=== PATIENT | female | born 1990 | race Caucasian/White ===

== ENCOUNTER 2020-07-29 13:05 | Emergency (ER) | payer BC ==
[~2020-07-29] VITALS: Ht 165.1 cm; Wt 99.3 kg
[2020-07-29] MEDS ORDERED: diphenhydrAMINE 50 MG/ML VIAL IVP ONE (13:30)
[2020-07-29] MEDS ORDERED: IV NORMAL SALINE 1,000ML 1,000 ML IV ONE (13:30)
[2020-07-29] MEDS ORDERED: PROCHLORPERAZINE 10 MG/2 ML VIAL. IV ONE (13:30)
[2020-07-29] MEDS ORDERED: ONDANSETRON PF 4 MG/2 ML VIAL. IVP ONE (13:30)
[2020-07-29 14:06] LABS: BASO # 0.1 x10^3/uL (0.0-0.2); BASO % 1 % (0-3); EOS # 0.1 x10^3/uL (0.0-0.7); EOS % 1 % (0-3); HEMATOCRIT 33.7 % (36.0-47.0); HEMOGLOBIN 10.7 g/dL (12.0-15.5); LYMPH # 2.8 x10^3/uL (1.0-4.8); LYMPH % 32 % (24-48); MEAN CORPUSCULAR HEMOGLOBIN 20 pg (25-35); MEAN CORPUSCULAR HGB CONC 32 g/dL (31-37); MEAN CORPUSCULAR VOLUME 62 fL (79-100); MONO # 0.6 x10^3/uL (0.0-1.1); MONO % 7 % (0-9); NEUT # 5.2 x10^3uL (1.8-7.7); NEUT % 59 % (31-73); PLATELET COUNT 232 x10^3/uL (140-400); RED BLOOD COUNT 5.45 x10^6/uL (3.50-5.40); RED CELL DISTRIBUTION WIDTH 16.4 % (11.5-14.5); WHITE BLOOD COUNT 8.7 x10^3/uL (4.0-11.0)
[2020-07-29 14:15] LABS: CALCIUM 9.2 mg/dL (8.5-10.1); CREATININE 0.8 mg/dL (0.6-1.0); GFR 84.2
--- NOTE | 2020-07-29 14:16 | RAD ---
CT head without contrast PQRS statement: CT scans at this facility use dose reduction including either automated exposure cont rol, iterative reconstructions, and /or weight based radiation dosing via mA and kV modification when appropriate to reduce radiation dose to as low as reasonably achievable. HISTORY: Headaches. Dizziness. Hemophilia history. FINDINGS: No intracranial hemorrhage, mass, hydrocephalus, extra-axial fluid collections or infarctio n. No acute ischemic change. Orbits, mastoids and bones are unremarkable. IMPRESSION: Normal exam. Electronically signed by: Jerod Montoya MD (07/29/2020 2:13 PM) [id number]
[2020-07-29 14:35] LABS: BACTERIA,URINE FEW /HPF (0-FEW); BILIRUBIN,URINE NEG (NEG); CLARITY,URINE CLEAR; COLOR,URINE YELLOW; GLUCOSE,URINE NEG (NEG); NITRITE,URINE NEG (NEG); SQUAMOUS EPITHELIAL CELL,UR OCC /LPF; UROBILINOGEN,URINE 0.2 mg/dL (0.2 mg/dL)
[2020-07-29 14:55] VITALS: BP 104/62
[2020-07-29] MEDS ORDERED: CEPH500C PO (14:59)
--- NOTE | 2020-07-29 14:59 | PHYS DOC ---
Past History Past Medical History: Migraines, Other Additional Past Medical Histor: VON WILLEBRANDS (CARMEN ZAMORANO APRN) Past Surgical History: Knee Replacement (CARMEN ZAMORANO APRN) Alcohol Use: None (CARMEN ZAMORANO APRN) Adult General Chief Complaint Chief Complaint: HEADACHE HPI HPI Patient is a 30-year-old female presents to the emergency department with complaints of a frontal headache that radiates to the left side of her latter day that is unrelieved with Excedrin headache medications at home. Patient states she also had a nosebleed on the right nostril that lasted about 5 minutes this morning and resolved prior to arrival to the ER. Patient reports some nausea with her headache, denies any vomiting, abdominal pain, constipation, or diarrhea. Patient denies any urinary tract infection type signs and symptoms, however states she had a longer and heavier than normal. That lasted from 06/18/20 through 06/26/2020, and has missed her normal menstrual cycle this month. Patient reports some photophobia with this headache which is normal for her headaches, patient states that this was a normal onset of her headache, denies any thunderclap type onset, patient states this feels like her normal headaches and is not the worst headache she has ever had in her life. Patient does report a history of thalassemia, von Willebrand, and hemophilia. Patient states she has no allergies to medications and takes no medications at home. Patient states she does have a Mirena IUD that was placed 5 years ago and knows that she should get it replaced soon. Patient states she does not have a physician in the [facility] as she recently moved here. Patient reports her headache pain a 7/10 on a 1-10 pain scale, states she has not taken any pain medicines today for her headache. Patient denies any unusual bleeding or bruising. (CARMEN ZAMORANO APRN) Review of Systems Review of Systems 14 body systems of review of systems have been reviewed. See HPI for pertinent positives and negative responses, otherwise all other systems are negative, nonpertinent or noncontributory. (CARMEN ZAMORANO APRN) Current Medications Current Medications Current Medications Medications (Trade) Dose Ordered Sig/Meg Start Time Stop Time Status Last Admin Dose Admin Diphenhydramine HCl (Benadryl) 25 mg 1X ONCE 07/29/20 13:30 07/29/20 13:45 DC 07/29/20 13:52 25 MG Fentanyl Citrate (Fentanyl 2ml Vial) 50 mcg 1X ONCE 07/29/20 13:30 07/29/20 13:45 DC 07/29/20 13:54 50 MCG Ondansetron HCl (Zofran) 4 mg 1X ONCE 07/29/20 13:30 07/29/20 13:45 DC 07/29/20 13:50 4 MG Prochlorperazine Edisylate (Compazine) 10 mg 1X ONCE 07/29/20 13:30 07/29/20 13:45 DC 07/29/20 13:51 10 MG Sodium Chloride 1,000 ml @ 1,000 mls/hr 1X ONCE 07/29/20 13:30 07/29/20 14:29 DC 07/29/20 13:48 1,000 MLS/HR (CARMEN ZAMORANO APRN) Allergies Allergies Allergies Coded Allergies Type Severity Reaction Last Updated Verified No Known Drug Allergies 07/29/20 No (CARMEN ZAMORANO APRN) Physical Exam Physical Exam Constitutional: Well developed, well nourished, no acute distress, non-toxic appearance. 30-year-old female no apparent distress. HENT: Normocephalic, atraumatic, bilateral external ears normal, oropharynx moist, no oral exudates, nose normal. Bilateral nasal turbinates within normal limits, no erythema, no blood noted, patent. No abnormalities of the oropharynx appreciated, no postnasal drip, no bleeding appreciated. Eyes: PERRLA, EOMI, conjunctiva normal, no discharge. Patient is photophobic, satisfactory 6 cardinal eye movements. Neck: Normal range of motion, no tenderness, supple, no stridor. Cardiovascular:Heart rate regular rhythm, no murmur, heart sounds S1-S2 to auscultation. Lungs & Thorax: Bilateral breath sounds clear to auscultation no adventitious lung sounds appreciated. Abdomen: Bowel sounds normal, soft, no tenderness, no masses, no pulsatile masses. Skin: Warm, dry, no erythema, no rash. No bruising or areas of ecchymosis of the skin surfaces. Back: No tenderness, no CVA tenderness. Extremities: No tenderness, no cyanosis, no clubbing, ROM intact, no edema. Neurologic: Alert and oriented X 3, normal motor function, normal sensory function, no focal deficits noted. Psychologic: Affect normal, judgement normal, mood normal. (CARMEN ZAMORANO APRN) Current Patient Data Vital Signs Vital Signs Date Time Temp Pulse Resp B/P (MAP) Pulse Ox O2 Delivery O2 Flow Rate FiO2 07/29/20 14:15 61 20 106/59 (75) 95 Room Air 07/29/20 13:15 98.5 Lab Results Laboratory Tests Test 07/29/20 13:35 07/29/20 13:40 07/29/20 13:42 Urine Collection Type Unknown Urine Color Yellow Urine Clarity Clear Urine pH 6.5 Urine Specific [place] 1.025 Urine Protein Neg (NEG-TRACE) Urine Glucose (UA) Neg mg/dL (NEG) Urine Ketones (Stick) Neg mg/dL (NEG) Urine Blood Neg (NEG) Urine Nitrite Neg (NEG) Urine Bilirubin Neg (NEG) Urine Urobilinogen Dipstick 0.2 mg/dL (0.2 mg/dL) Urine Leukocyte Esterase Small (NEG) Urine RBC 1-2 /HPF (0-2) Urine WBC 1-4 /HPF (0-4) Urine Squamous Epithelial Cells Occ /LPF Urine Bacteria Few /HPF (0-FEW) White Blood Count 8.7 x10^3/uL (4.0-11.0) Red Blood Count 5.45 x10^6/uL (3.50-5.40) H Hemoglobin 10.7 g/dL (12.0-15.5) L Hematocrit 33.7 % (36.0-47.0) L Mean Corpuscular Volume 62 fL (79-100) L Mean Corpuscular Hemoglobin 20 pg (25-35) L Mean Corpuscular Hemoglobin Concent 32 g/dL (31-37) Red Cell Distribution Width 16.4 % (11.5-14.5) H Platelet Count 232 x10^3/uL (140-400) Neutrophils (%) (Auto) 59 % (31-73) Lymphocytes (%) (Auto) 32 % (24-48) Monocytes (%) (Auto) 7 % (0-9) Eosinophils (%) (Auto) 1 % (0-3) Basophils (%) (Auto) 1 % (0-3) Neutrophils # (Auto) 5.2 x10^3uL (1.8-7.7) Lymphocytes # (Auto) 2.8 x10^3/uL (1.0-4.8) Monocytes # (Auto) 0.6 x10^3/uL (0.0-1.1) Eosinophils # (Auto) 0.1 x10^3/uL (0.0-0.7) Basophils # (Auto) 0.1 x10^3/uL (0.0-0.2) Platelet Estimate Pending Sodium Level 143 mmol/L (136-145) Potassium Level 4.0 mmol/L (3.5-5.1) Chloride Level 109 mmol/L (98-107) H Carbon Dioxide Level 26 mmol/L (21-32) Anion Gap 8 (6-14) Blood Urea Nitrogen 9 mg/dL (7-20) Creatinine 0.8 mg/dL (0.6-1.0) Estimated GFR (Cockcroft-Gault) 84.2 Glucose Level 84 mg/dL (70-99) Calcium Level 9.2 mg/dL (8.5-10.1) POC Urine HCG, Qualitative hcg negative (Negative) (CARMEN ZAMORANO APRN) EKG EKG [] (CARMEN ZAMORANO APRN) Radiology/Procedures Radiology/Procedures PATIENT: ENOCH MAZARIEGOS ACCOUNT: [id number] : 1990 LOCATION: ER AGE: 30 SEX: F EXAM STATUS: REG ER ORD. PHYSICIAN: CARMEN ZAMORANO APRN REASON: INTRACTABLE HEADACHE WIT HEMOPHELIA HX PROCEDURE: CT HEAD WO CONTRAST CT head without contrast PQRS statement: CT scans at this facility use dose reduction including either automated exposure control, iterative reconstructions, and /or weight based radiation dosing via mA and kV modification when appropriate to reduce radiation dose to as low as reasonably achievable. HISTORY: Headaches. Dizziness. Hemophilia history. FINDINGS: No intracranial hemorrhage, mass, hydrocephalus, extra-axial fluid collections or infarction. No acute ischemic change. Orbits, mastoids and bones are unremarkable. IMPRESSION: Normal exam. Electronically signed by: Joshua Montoya MD (07/29/2020 2:13 PM) [id number] DICTATED AND SIGNED BY: JOSHUA MONTOYA MD DATE: 07/29/20 1410 CC: CARMEN ZAMORANO APRN; PCP,NO ~MTH0 0 (CARMEN ZAMORANO APRN) Heart Score C/O Chest Pain: No Risk Factors: Risk Factors: DM, Current or recent (<one month) smoker, HTN, HLP, family history of CAD, obesity. Risk Scores: Risk Factors: DM, Current or recent (<one month) smoker, HTN, HLP, family history of CAD, obesity. (CARMEN ZAMORANO APRN) Course & Med Decision Making Course & Med Decision Making Pertinent Labs and Imaging studies reviewed. (See chart for details) 30-year-old female, vital signs reviewed, presents emergency department with complaints of headache for a week that is on resolved with [id number] Excedrin Migraine pain medication. Patient also complained of a nosebleed just prior to arrival the lasted approximately 5 minutes. Physical examination is unremarkable. Patient does have reported history of von Willebrand's, hemophilia, and thalassemia. With related health history and intractable headache will order CT scan to rule out neurological process of the brain. The patient's NIHSS score equals 0. Will start headache cocktail, will defer using NSAID related to patient's bleeding abnormalities. Will order urinalysis and test related to patient's reported missing her last menstrual cycle and abnormal previous last menstrual cycle in June 2020. CT head negative for acute process. The patient was not , the patient's urine was infected. Upon reexamination of the patient, patient states she is pain-free and symptom-free and feels much better, is thankful and states she is ready to go home. Discussed with patient CT head findings, urine negative, discussed with patient UTI, will treat with Keflex 500 mg twice daily x5 days. Discussed with patient will give primary care provider in [facility] to follow-up with for ongoing health care. Diagnosis of tension headache. Patient gave verbal understanding of discharge home instructions, follow-up with PCP, [facility], antibiotic prescription, patient was thankful states she is ready go home, was discharged home without incident. (CARMEN ZAMORANO APRN) Course & Med Decision Making I oversaw on the above date of service of this patient and discussed the care with the REMNANT SORTER. I agree with the findings, plan of care, and disposition as documented. Electronically signed, Shane Bundy DO (SHANE BUNDY DO) Gurmeet Disclaimer Dragon Disclaimer This electronic medical record was generated, in whole or in part, using a voice recognition dictation system. (CARMEN ZAMORANO APRN) NIH Stroke Scale: NIH Stroke Scale Response (Comments) Value Level of Consciousness: 0 Alert/Responsive 0 LOC Questions: 0 Answers both correctly 0 LOC Commands: 0 Performs both tasks 0 Best Gaze: 0 Normal 0 Visual: 0 No visual loss 0 Facial Palsy: 0 Normal, symmetrical 0 Motor - Left Arm 0 No drift 0 Motor - Right Arm 0 No drift 0 Motor - Left Leg 0 No drift 0 Motor: Right Leg 0 No drift 0 Limb Ataxia: 0 Absent 0 Sensory: 0 No loss 0 Best Language: 0 Normal 0 Dysathria: 0 Normal 0 Extinction and Inattention: 0 Normal (No concerning findings on stro ke scale.) 0 Total 0 Departure Departure: Impression: Primary Impression: Headache Additional Impressions: Right-sided nosebleed Urinary tract infection Disposition: HOME / SELF CARE / HOMELESS Condition: GOOD Referrals: [facility]Y (PCP) JUVENTINO ANNE Patient Instructions: General Headache Without Cause, Nosebleed, Urinary Tract Infection Additional Instructions: You are seen today in the emergency department for a headache that has been going on for a week, with your history of bleeding disorders a CT of your head was ordered, the CT did not show any concerning findings that would require admission to the hospital or follow-up with a neurosurgeon or neurologist. Your headache was relieved with a headache cocktail given to you intravenously. You did complain of a nosebleed, it had resolved prior to your arrival to the emergency department. On examination of your nose there were no concerning findings. However you may use [id number] [place] spray or saline nasal drops to keep your nasal passages moist to prevent further nosebleeds. A urinalysis was performed and while you had no UTI signs and symptoms, there were findings of bacteria and white blood cells in your urine. We discussed treating you with an antibiotic for a urinary tract infection. Please take the prescribed antibiotic as directed. You indicated you have moved into the area just recently and have no primary care provider. I have suggested a primary care provider ISAIAH Patterson to follow-up with for further healthcare needs. Please return to the emergency department for worsening symptoms or other concerns. EMERGENCY DEPARTMENT GENERAL DISCHARGE INSTRUCTIONS Thank you for coming to [facility] (ED) today and trusting us with you care. We trust that you had a positivie experience in our Emergency Department. If you wish to speak to the department management, you may call the director at [phone]. YOUR FOLLOW UP INSTRUCTIONS ARE FOLLOWS: 1. Do you have a private Doctor? If you do not have a private doctor, please ask for a resource list of physicians or clinics that may be able to assist you with follow up care. 2. The Emergency Physician has interpreted your x-rays. The X-Ray specialist will also review them. If there is a change in the findings, you will be notified in 48 hours when at all possible. 3. A lab test or culture has been done, your results will be reviewed and you will be notified if you need a change in treatment. ADDITIONAL INSTRUCTIONS AND INFORMATION: 1. Your care today has been supervised by a physician who is specially trained in emergency care. Many problems require more than one evaluation for a complete diagnosis and treatment. We recommend that you schedule your follow up appointment as recommended to ensure complete treatment of you illness or injury. If you are unable to obtain follow up care and continue to have a problem, or if your condition worsens, we recommend that you return to the ED. 2. We are not able to safely determine your condition over the phone nor are we able to give sound medical advice over the phone. For these safety reasons, if you call for medical advice we will ask you to come to the ED for further evaluation. 3. If you have any questions regarding these discharge instructions please call the ED at [phone]. SAFETY INFORMATION: In the interest of safety, wellness, and injury prevention; we encourage you to wear your sealbelt, if you smoke; quite smoking, and we encourage family to use a protective helmet for bicycling and other sporting events that present an increased risk for head injury. IF YOUR SYMPTOMS WORSEN OR NEW SYMPTOMS DEVELOP, OR YOU HAVE CONCERNS ABOUT YOUR CONDITION; OR IF YOUR CONDITION WORSENS WHILE YOU ARE WAITING FOR YOUR FOLLOW UP APPOINTM ENT; EITHER CONTACT YOUR PRIMARY CARE DOCTOR, THE PHYSICIAN WHOSE NAME AND NUMBER YOU WERE GIVEN, OR RETURN TO THE ED IMMEDIATELY. Scripts Cephalexin (CEPHALEXIN) 500 Mg Capsule 1 CAP PO BID for UTI for 5 Days, #10 CAP 0 Refills Prov: CARMEN ZAMORANO APRN 07/29/20 Problem Qualifiers Primary Impression: Headache Headache type: tension-type Headache chronicity pattern: acute headache Intractability: not intractable Qualified Codes: G44.209 - Tension-type headache, unspecified, not intractable Additional Impressions: Urinary tract infection Urinary tract infection type: site unspecified Hematuria presence: without hematuria Qualified Codes: N39.0 - Urinary tract infection, site not specified CARMEN ZAMORANO APRN July 29, 2020 14:59 SHANE BUNDY DO August 01, 2020 16:06
[2020-07-29 15:16] LABS: ANISOCYTOSIS SLIGHT; HYPOCHROMIA MOD; MICROCYTOSIS SLIGHT; PLT ESTIMATE ADEQUATE (ADEQUATE); POLYCHROMASIA SLIGHT
[2020-07-29 15:17] LABS: OVALOCYTES FEW; TARGET CELLS OCC; TEAR DROP CELLS OCC
== END 2020-07-29 15:05 | disposition home or self-care (01) ==
LOC: ER 13:05
DX: G43.909 Migraine, unspecified, not intractable, without status migrainosus (principal); R04.0 Epistaxis; N39.0 Urinary tract infection, site not specified
CPT/HCPCS: 36415; 70450; 80048; 81001; 81025; 85025; 87086; 96361; 96374; 96375; 99284; J0780; J1200; J2405; J3010; J7030